=== PATIENT | male | born 1945 | race Caucasian/White ===

== ENCOUNTER 2019-06-19 08:34 | Inpatient (IN) | payer OTHER ==
[~2019-06-19] VITALS: Ht 172.7 cm; Wt 124.3 kg
[~2019-06-19 08:34] MED LIST: ACET325 PO; ALBU90OI INH; AMLO5 PO; ASPI81CH PO; Acidophilus La100 GM PO; DOCU100 PO; Flovent Diskus50 MCG INH; ISOMON20 PO; LATA.005SO BOTHEYES; LIDO5TP TOP; LORA1 PO; LORA10 PO; MECL12.5 PO; MONT10T PO; Omeprazole20 M1 PO; TRAM50 PO; TRAZ100 PO; [UNRECOGNIZED DRUG - OTHER] TOP
[2019-06-19 10:22] LABS: BASOPHILS ABSOLUTE AUTO 0.05 K/mm3 (0.00-0.23); BASOPHILS PERCENT AUTO 1 % (0-2); EOSINOPHILS ABSOLUTE AUTO 0.22 K/mm3 (0.00-0.68); EOSINOPHILS PERCENT AUTO 2 % (0-6); Hematocrit 46.1 % (37.0-53.0); Hemoglobin 15.6 g/dL (13.5-17.5); IMMATURE GRAN ABSOLUTE AUTO 0.03 K/mm3 (0.00-0.10); IMMATURE GRAN PERCENT AUTO 0 % (0-1); LYMPHOCYTES ABSOLUTE AUTO 1.75 K/mm3 (0.84-5.20); LYMPHOCYTES PERCENT AUTO 19 % (21-46); MONOCYTES ABSOLUTE AUTO 0.75 K/mm3 (0.16-1.47); MONOCYTES PERCENT AUTO 8 % (4-13); Mean Corpuscular HGB 30.5 pg (26.0-34.0); Mean Corpuscular HGB Conc 33.8 g/dL (31.5-36.5); Mean Corpuscular Volume 90 fL (80-100); Mean Platelet Volume 9.3 fL (9.1-12.4); NEUTROPHILS ABSOLUTE AUTO 6.54 K/mm3 (1.96-9.15); NEUTROPHILS PERCENT AUTO 70 % (41-73); Platelet Count 232 K/mm3 (150-400); Red Blood Cell Count 5.11 M/mm3 (4.30-5.90); White Blood Cell Count 9.34 K/mm3 (4.00-11.30)
[2019-06-19 10:27] LABS: Alanine Aminotransfer (ALT/SGP 41 U/L (12-78); Albumin, Blood 3.5 g/dL (3.4-5.0); Albumin/Globulin Ratio 0.7 (0.8-1.8); Alk Phos 117 U/L (50-136); Anion Gap 8 mmol/L (6-16); Aspartate Aminotrans (AST/SGOT 45 U/L (12-37); Bilirubin, Total 0.5 mg/dL (0.1-1.0); Blood Urea Nitrogen 14 mg/dL (8-24); Bun/Creatinine Ratio 16.7 (12.0-20.0); CO2, Blood 24 mmol/L (21-32); Chloride, Blood 105 mmol/L (98-108); Creatinine, Blood 0.84 mg/dL (0.60-1.20); Globulin, Blood 4.7 g/dL (2.2-4.0); Glomerular Filtration Rate >60 (60-); Glucose, Blood 114 mg/dL (70-99); Potassium, Blood 4.7 mmol/L (3.5-5.5); Sodium, Blood 137 mmol/L (136-145); Total Protein, Blood 8.2 g/dL (6.4-8.2)
[2019-06-19] MEDS ORDERED: BUDE6HFA INH (18:18)
[2019-06-19] MEDS ORDERED: CELE100 PO (18:19)
[2019-06-19] MEDS ORDERED: CLOB.05TO TOP (18:21)
[2019-06-19] MEDS ORDERED: DORZOLAMIDE 2%10 ML TOP (18:22)
[2019-06-19] MEDS ORDERED: SERT100 PO (18:25)
--- NOTE | 2019-06-19 18:37 | NUR ---
SHIFT SUMMARY ED ADMIT THIS AFTERNOON. PATIENT ORIENTED TO ROOM. PATIENT HAVING EPIGATRIC PAIN. PATIENT REPORTS PAIN MEDS GIVEN IN ED DID NOT HELP NOR DID THE GI COCKTAIL. PATIENT MEDICATED X1 FOR VOMITING. DENIES SHORTNESS OF BREATH. CALL LIGHT IN REACH.
[2019-06-20 01:09] LABS: BASOPHILS ABSOLUTE AUTO 0.05 K/mm3 (0.00-0.23); BASOPHILS PERCENT AUTO 1 % (0-2); EOSINOPHILS ABSOLUTE AUTO 0.12 K/mm3 (0.00-0.68); EOSINOPHILS PERCENT AUTO 1 % (0-6); Hematocrit 41.2 % (37.0-53.0); Hemoglobin 13.5 g/dL (13.5-17.5); IMMATURE GRAN ABSOLUTE AUTO 0.04 K/mm3 (0.00-0.10); IMMATURE GRAN PERCENT AUTO 0 % (0-1); LYMPHOCYTES ABSOLUTE AUTO 1.61 K/mm3 (0.84-5.20); LYMPHOCYTES PERCENT AUTO 16 % (21-46); MONOCYTES ABSOLUTE AUTO 0.88 K/mm3 (0.16-1.47); MONOCYTES PERCENT AUTO 9 % (4-13); Mean Corpuscular HGB 29.9 pg (26.0-34.0); Mean Corpuscular HGB Conc 32.8 g/dL (31.5-36.5); Mean Corpuscular Volume 91 fL (80-100); Mean Platelet Volume 9.2 fL (9.1-12.4); NEUTROPHILS ABSOLUTE AUTO 7.16 K/mm3 (1.96-9.15); NEUTROPHILS PERCENT AUTO 73 % (41-73); Platelet Count 179 K/mm3 (150-400); RDW Coefficient Variation 15.1 % (11.7-14.2); RDW Standard Deviation 50.4 fL (35.1-46.3); Red Blood Cell Count 4.52 M/mm3 (4.30-5.90); White Blood Cell Count 9.86 K/mm3 (4.00-11.30)
[2019-06-20 01:28] LABS: Alanine Aminotransfer (ALT/SGP 35 U/L (12-78); Albumin, Blood 2.9 g/dL (3.4-5.0); Albumin/Globulin Ratio 0.7 (0.8-1.8); Alk Phos 86 U/L (50-136); Anion Gap 6 mmol/L (6-16); Aspartate Aminotrans (AST/SGOT 28 U/L (12-37); Bilirubin, Total 0.6 mg/dL (0.1-1.0); Blood Urea Nitrogen 16 mg/dL (8-24); Bun/Creatinine Ratio 15.7 (12.0-20.0); CO2, Blood 25 mmol/L (21-32); Calcium, Blood 8.1 mg/dL (8.5-10.1); Chloride, Blood 107 mmol/L (98-108); Creatinine, Blood 1.02 mg/dL (0.60-1.20); Globulin, Blood 4.1 g/dL (2.2-4.0); Glomerular Filtration Rate >60 (60-); Glucose, Blood 117 mg/dL (70-99); Potassium, Blood 4.3 mmol/L (3.5-5.5); Sodium, Blood 138 mmol/L (136-145)
--- NOTE | 2019-06-20 06:35 | NUR ---
SHIFT SUMMARY PT IS A 74 Y/O MALE, ADMITTED FOR EPIGASTRIC CHEST PAIN. HE IS A&O X 3, THOUGH FORGETFUL AT TIMES. HE HAS BEEN VERY WEAK DURING THE NIGHT, OFTEN FALLING BACKWARDS INTO THE BED WHEN HE TRIES TO SIT UP ON THE SIDE OF THE BED. HE DID REPORT CHEST PAIN THROUGH THE NIGHT, AT AN 8-9/10 AT HS, BUT CAME DOWN THE A 4-5/10 IN THE AM. THE HOSPITALIST, NICOL HERNANDEZ, WAS CONSULTED FOR PAIN MEDS. HOWEVER, PER REPORT, NONE OF THE PREVIOUS PAIN MEDS TRIED HAD WORKED FOR THE PT'S PAIN. NITRO WAS ORDERED, BUT PT DECLINED. NO COMPLAINTS OF NAUSEA OR SOB. VITAL SIGNS STABLE. TELE MONITOR SHOWED NSR C PACS IN THE 90S. NO ACUTE CHANGES IN PT CONDITION NOTED. PT SLEPT WELL OFF AND ON DURING THE NIGHT. WILL CONTINUE TO MONITOR AND TREAT PER EMAR UNTIL HAND OFF TO DAY SHIFT RN.
--- NOTE | 2019-06-20 11:23 | NUR ---
ECHOCARDIOGRAM COMPLETED
--- NOTE | 2019-06-20 17:34 | NUR ---
SHIFT SUMMARY PATIENT MEDICATED X 1 FOR NAUSEA AND X1 FOR ANXIETY. PATIENT HAS CONTINUED TO HAVE EPIGASTRIC PAIN DURING THIS SHIFT. CASEY HAS HAD EPISODES OF NAUSEA AND DRYHEAVING WHEN HE ATTEMPTS TO EAT. PATIENT INTERMITTENTLY CONFUSED. BED ALARM ON, AT BEDSIDE MOST OF SHIFT. PATIENT UP TO USE URINAL AT BEDSIDE WITH ASSISTANCE. PATIENT VERY UNSTEADY ON HIS FEET. CALL LIGHT IN REACH.
--- NOTE | 2019-06-21 06:34 | NUR ---
SHIFT SUMMARY PT IS A 74 Y/O MALE, ORIGINALLY ADMITTED FOR EPIGASTRIC CHEST PAIN. HE IS A&O X 2, INCREASINGLY CONFUSED AT TIMES. PT DOES HAVE INCREASED WEAKNESS, WITH SOME DIFFICULTY SITTING UP ON THE SIDE OF THE BED. HE IS A 1-2PA UP TO THE [facility] [place]. PT IS STILL REPORTING PAIN, THOUGH DECREASED FROM ADMISSION, BETWEEN A 4-5/10. RUQ TENDERNESS NOTED. VITAL SIGNS STABLE. TELE SHOWED NSR WITH A FDB AT 58. NO COMPLAINTS OF NAUSEA OR SOB. NO ACUTE CHANGES IN PT CONDITION NOTED. WILL CONTINUE TO MONITOR AND TREAT PER EMAR UNTIL HAND OFF TO DAY SHIFT RN.
[2019-06-21 08:40] LABS: BASOPHILS ABSOLUTE AUTO 0.05 K/mm3 (0.00-0.23); BASOPHILS PERCENT AUTO 0 % (0-2); EOSINOPHILS ABSOLUTE AUTO 0.02 K/mm3 (0.00-0.68); EOSINOPHILS PERCENT AUTO 0 % (0-6); Hematocrit 41.6 % (37.0-53.0); Hemoglobin 14.1 g/dL (13.5-17.5); IMMATURE GRAN ABSOLUTE AUTO 0.07 K/mm3 (0.00-0.10); IMMATURE GRAN PERCENT AUTO 1 % (0-1); LYMPHOCYTES ABSOLUTE AUTO 1.67 K/mm3 (0.84-5.20); LYMPHOCYTES PERCENT AUTO 14 % (21-46); MONOCYTES ABSOLUTE AUTO 0.88 K/mm3 (0.16-1.47); MONOCYTES PERCENT AUTO 7 % (4-13); Mean Corpuscular HGB 30.7 pg (26.0-34.0); Mean Corpuscular HGB Conc 33.9 g/dL (31.5-36.5); Mean Corpuscular Volume 90 fL (80-100); NEUTROPHILS ABSOLUTE AUTO 9.16 K/mm3 (1.96-9.15); NEUTROPHILS PERCENT AUTO 77 % (41-73); Platelet Count 176 K/mm3 (150-400); RDW Coefficient Variation 14.6 % (11.7-14.2); RDW Standard Deviation 48.3 fL (35.1-46.3); White Blood Cell Count 11.85 K/mm3 (4.00-11.30)
[2019-06-21 09:01] LABS: Alanine Aminotransfer (ALT/SGP 35 U/L (12-78); Albumin, Blood 2.8 g/dL (3.4-5.0); Albumin/Globulin Ratio 0.6 (0.8-1.8); Alk Phos 85 U/L (50-136); Anion Gap 7 mmol/L (6-16); Aspartate Aminotrans (AST/SGOT 35 U/L (12-37); Bilirubin, Total 1.1 mg/dL (0.1-1.0); Blood Urea Nitrogen 16 mg/dL (8-24); Bun/Creatinine Ratio 17.6 (12.0-20.0); CO2, Blood 24 mmol/L (21-32); Calcium, Blood 8.5 mg/dL (8.5-10.1); Chloride, Blood 107 mmol/L (98-108); Creatinine, Blood 0.91 mg/dL (0.60-1.20); Globulin, Blood 4.7 g/dL (2.2-4.0); Glomerular Filtration Rate >60 (60-); Glucose, Blood 111 mg/dL (70-99); Sodium, Blood 138 mmol/L (136-145); Total Protein, Blood 7.5 g/dL (6.4-8.2)
--- NOTE | 2019-06-21 14:35 | NUR ---
History, Chart, Medications and Allergies reviewed before start of procedure. Lungs clear T/O to Auscultation. Patient confirms NPO status and agrees with scheduled surgery. Pre-Op teaching done. Pt verbalizes understanding.
--- NOTE | 2019-06-21 19:43 | NUR ---
SHIFT SUMMARY- PT WENT TO DAY SURGERY AT 1400 AND HAS NOT YET RETURNED AT SHIFT CHANGE, HOWEVER HIS SPOUSE CAME UP AND STATED THE PROCEDURE WAS FINALLY COMPLETED, PER THE PT THE GALLBLADDER WAS NOT LOOKING GOOD AT ALL. PASSED ON IN REPORT THAT THE PT HAS NOT YET RETURNED AND PACU WILL POSSIBLY BE CALLING SOON FOR REPORT. NIGHT DUONG HAIRSTON AWARE. PT HAS PRN FENTANYL ORDERED FOR PAIN. THAT WAS GIVEN TWICE PRIOR TO SURGERY. PT WILL BE ON TELE AGAIN WHEN HE ARRIVES FROM PACU. PT WAS RUNNING NSR IN THE 80'S WITH A FIRST DEGREE BLOCK THIS MORNING.
--- NOTE | 2019-06-22 04:38 | NUR ---
SHIFT SUMMARY ADMITTED FOR CHEST PAIN (EPIGASTRIC PAIN). FULL CODE. USES CPAP @ PM. LAPCHOLE PERFORMED TODAY. ZAYRA DRAIN IN PLACE. PAIN MEDICATION IN EMAR IS AVAILABLE. POST OP VS ARE IN PROGRESS. 2 LPM VIA NC. IV ANTIBIOTICS ARE SCHEDULED. CAN BE FORGETFUL. MONITORING WBC LABS. HX: ANXIETY, COPD, ASTHMA, HTN, ANGINA.
[2019-06-22 05:04] LABS: BASOPHILS ABSOLUTE AUTO 0.02 K/mm3 (0.00-0.23); BASOPHILS PERCENT AUTO 0 % (0-2); EOSINOPHILS PERCENT AUTO 0 % (0-6); Hemoglobin 12.5 g/dL (13.5-17.5); IMMATURE GRAN ABSOLUTE AUTO 0.06 K/mm3 (0.00-0.10); IMMATURE GRAN PERCENT AUTO 1 % (0-1); LYMPHOCYTES ABSOLUTE AUTO 1.05 K/mm3 (0.84-5.20); LYMPHOCYTES PERCENT AUTO 9 % (21-46); MONOCYTES ABSOLUTE AUTO 0.85 K/mm3 (0.16-1.47); MONOCYTES PERCENT AUTO 7 % (4-13); Mean Corpuscular HGB 30.5 pg (26.0-34.0); Mean Corpuscular HGB Conc 32.9 g/dL (31.5-36.5); Mean Platelet Volume 9.5 fL (9.1-12.4); NEUTROPHILS ABSOLUTE AUTO 9.73 K/mm3 (1.96-9.15); NEUTROPHILS PERCENT AUTO 83 % (41-73); Platelet Count 180 K/mm3 (150-400); RDW Coefficient Variation 14.9 % (11.7-14.2); RDW Standard Deviation 50.4 fL (35.1-46.3); White Blood Cell Count 11.71 K/mm3 (4.00-11.30)
[2019-06-22 05:18] LABS: Mean Corpuscular Volume 93 fL (80-100)
[2019-06-22 05:27] LABS: Alanine Aminotransfer (ALT/SGP 36 U/L (12-78); Albumin, Blood 2.3 g/dL (3.4-5.0); Albumin/Globulin Ratio 0.5 (0.8-1.8); Alk Phos 76 U/L (50-136); Anion Gap 7 mmol/L (6-16); Aspartate Aminotrans (AST/SGOT 46 U/L (12-37); Blood Urea Nitrogen 17 mg/dL (8-24); CO2, Blood 22 mmol/L (21-32); Calcium, Blood 8.1 mg/dL (8.5-10.1); Chloride, Blood 108 mmol/L (98-108); Creatinine, Blood 0.94 mg/dL (0.60-1.20); Globulin, Blood 4.5 g/dL (2.2-4.0); Glomerular Filtration Rate >60 (60-); Glucose, Blood 149 mg/dL (70-99); Potassium, Blood 4.2 mmol/L (3.5-5.5); Sodium, Blood 137 mmol/L (136-145); Total Protein, Blood 6.8 g/dL (6.4-8.2)
--- NOTE | 2019-06-22 09:05 | NUR ---
06/22/19 0905 Connie Georges VERIFICATIONS: EDIT CHART.
--- NOTE | 2019-06-22 13:08 | NUR ---
Patient gave Student RN permission to access medical records for care. Permission given [id number]- 06/23/19
--- NOTE | 2019-06-22 19:45 | NUR ---
SUMMARY- PT ALRET AND ORIENTED. PT WORKED WITH PT AND OT THIS AM BEFORE PAIN MEDS AND WAS A 10/10- MEDICATED WITH VICODIN AT 0915- AN HOUR LATER A 5/10 MEDICATED WITH FENTANYL WITH RELEIF, PT WAS SLEEPY AFTER THIS DOSE AND WENT BACK TO BED AFTER SITTING UP IN THE CHAIR FOR AN HOUR. PT TOLERATED A CARDIAC DIET FOR LUNCH. 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 MEDICATED AGAIN AT 1515 FOR ABD PAIN WITH ADEQUATE RELEIF. TOLERATED CARDIAC DINNER. GOT UP TO THE BATHROOM TODAY AND WALKED IN PLACE FOR PT. MAKING PROGRESS, WILL REPORT TO ASPEN WATTERS.
--- NOTE | 2019-06-23 04:54 | NUR ---
SHIFT SUMMARY ADMITTED FOR CHEST PAIN (ABDOMINAL PAIN). FULL CODE. FOUND TO HAVE INFECTED GALLBLADDER. LAPCHOLE PERFORMED 2 DAYS AGO. ZAYRA DRAIN IN PLACE, NOTED LESS DRAINAGE THIS SHIFT AND NOT SANGUINOUS IN APPEARANCE. PT REQUESTED ORAL PAIN MEDS ONLY ONE TIME THIS SHIFT. IV ANTIBIOTICS ARE SCHEDULED. PHYSICAL THERAPY AND OT ARE WORKING WITH THIS PT. OT RECOMMENDS DC W/HH. PT STATES HE FEELS MUCH IMPROVED THIS SHIFT. HX: CHOLECYSTITIS, HTN, COPD, ANXIETY. 2 LPM O2 VIA NC PRN. CPAP @ PM IS BASELINE
[2019-06-23 05:38] LABS: BASOPHILS ABSOLUTE AUTO 0.03 K/mm3 (0.00-0.23); BASOPHILS PERCENT AUTO 0 % (0-2); EOSINOPHILS ABSOLUTE AUTO 0.06 K/mm3 (0.00-0.68); EOSINOPHILS PERCENT AUTO 1 % (0-6); Hematocrit 38.4 % (37.0-53.0); Hemoglobin 12.7 g/dL (13.5-17.5); IMMATURE GRAN ABSOLUTE AUTO 0.03 K/mm3 (0.00-0.10); IMMATURE GRAN PERCENT AUTO 0 % (0-1); LYMPHOCYTES ABSOLUTE AUTO 1.79 K/mm3 (0.84-5.20); LYMPHOCYTES PERCENT AUTO 21 % (21-46); MONOCYTES ABSOLUTE AUTO 0.55 K/mm3 (0.16-1.47); MONOCYTES PERCENT AUTO 7 % (4-13); Mean Corpuscular HGB 30.4 pg (26.0-34.0); Mean Corpuscular HGB Conc 33.1 g/dL (31.5-36.5); Mean Corpuscular Volume 92 fL (80-100); Mean Platelet Volume 9.3 fL (9.1-12.4); NEUTROPHILS ABSOLUTE AUTO 5.98 K/mm3 (1.96-9.15); NEUTROPHILS PERCENT AUTO 71 % (41-73); Platelet Count 214 K/mm3 (150-400); RDW Coefficient Variation 14.9 % (11.7-14.2); RDW Standard Deviation 50.4 fL (35.1-46.3); Red Blood Cell Count 4.18 M/mm3 (4.30-5.90); White Blood Cell Count 8.44 K/mm3 (4.00-11.30)
[2019-06-23 06:06] LABS: Alanine Aminotransfer (ALT/SGP 34 U/L (12-78); Albumin, Blood 2.3 g/dL (3.4-5.0); Albumin/Globulin Ratio 0.5 (0.8-1.8); Alk Phos 78 U/L (50-136); Anion Gap 6 mmol/L (6-16); Aspartate Aminotrans (AST/SGOT 35 U/L (12-37); Bilirubin, Total 0.7 mg/dL (0.1-1.0); Blood Urea Nitrogen 16 mg/dL (8-24); Bun/Creatinine Ratio 18.3 (12.0-20.0); CO2, Blood 26 mmol/L (21-32); Calcium, Blood 8.3 mg/dL (8.5-10.1); Chloride, Blood 111 mmol/L (98-108); Creatinine, Blood 0.87 mg/dL (0.60-1.20); Globulin, Blood 4.5 g/dL (2.2-4.0); Glomerular Filtration Rate >60 (60-); Glucose, Blood 94 mg/dL (70-99); Magnesium, Blood 2.2 mg/dL (1.6-2.4); Sodium, Blood 143 mmol/L (136-145); Total Protein, Blood 6.8 g/dL (6.4-8.2)
[2019-06-23] MEDS ORDERED: LACT PO (10:10)
[2019-06-23] MEDS ORDERED: ATOR40TA PO (10:11)
[2019-06-23] MEDS ORDERED: LEVO750 PO (10:13)
[2019-06-23] MEDS ORDERED: LIDO700A20 TOP (10:18)
--- NOTE | 2019-06-23 11:11 | NUR ---
DISCHARGE DR ALEXANDER IN THIS AM TO ASSESS LAP CHOLEY SURG SITES & REMOVE ZAYRA DRAIN, STERI STRIPS TO 3 SITES, 2X2 GAUZE TO ZAYRA SITE. NO S/S INFECTION, NO DRAINAGE. DR INFORM PT HE MAY REMOVE GUARIANA DRSG WHEN HE SHOWERS @ HOME & REPLACE w BANDAID. PT STATE ABD PAIN CONTINUES, DR PROVIDE HARD COPY PAIN SCRIPT. PRN NORCO GIVEN FOR RELIEF/CONTROL @ THIS TIME. SCRIPTS FAXED TO [facility]/REQUEST. PHYTHER IN TO ASSESS & TX PRIOR TO D/C, STATE READY TO GO HOME. HERE FOR TRANSPORTATION HOME, D/C INSTRUCT REVIEWED w PT & . W/C ESCORT FROM HOSP PROVIDED. THEY PLEASANT/APPRECIATIVE.
== END 2019-06-23 12:01 | disposition home or self-care (01) | DRG 418 ==
LOC: ER 08:34 → MEDS 08:35 → ENPENDDIS 06-23 09:23 → MEDS 06-23 12:01
PROVIDERS: Emergency Medicine; Nurse Practitioner Acute Care; Surgery; ADMIT Internal Medicine
PROC: BF03YZZ Plain Radiography of Gallbladder and Bile Ducts using Other Contrast (ICD-10-PCS; 2019-06-21)
PROC: 0FT44ZZ Resection of Gallbladder, Percutaneous Endoscopic Approach (ICD-10-PCS; principal; 2019-06-21 15:00)
DX: K80.00 Calculus of gallbladder with acute cholecystitis without obstruction (principal); Z68.41 Body mass index [BMI] 40.0-44.9, adult; K82.A1 Gangrene of gallbladder in cholecystitis; E66.01 Morbid (severe) obesity due to excess calories; J44.9 Chronic obstructive pulmonary disease, unspecified; I10 Essential (primary) hypertension; F41.1 Generalized anxiety disorder; K21.9 Gastro-esophageal reflux disease without esophagitis; L40.9 Psoriasis, unspecified; G47.33 Obstructive sleep apnea (adult) (pediatric); Z79.82 Long term (current) use of aspirin
CPT/HCPCS: 36415; 71046; 74300; 76705; 80053; 83690; 83735; 84484; 85025; 88304; 93005; 93010; 93306; 94640; 94760; 96361; 96365; 96372; 96374; 96375; 96376; 97110; 97161; 97166; 97530; 99285-25; A9270; A9270-GY; C1729; C9113; G0378; J0694; J1100; J1170; J1650; J1885; J2270; J2405; J2704; J3010; J7030; J7120

== ENCOUNTER 2020-09-18 14:03 | Emergency (ER) | payer OTHER ==
[~2020-09-18] VITALS: Ht 172.7 cm; Wt 115.7 kg
[~2020-09-18 14:03] MED LIST changes: +ATOR40TA PO; +BUDE6HFA INH; +CELE100 PO; +CLOB.05TO TOP; +DORZOLAMIDE 2%10 ML TOP; +LACT PO; +LEVO750 PO; +LIDO700A20 TOP; +SERT100 PO
[2020-09-18 14:54] LABS: BASOPHILS ABSOLUTE AUTO 0.04 K/mm3 (0.00-0.23); BASOPHILS PERCENT AUTO 0 % (0-2); EOSINOPHILS ABSOLUTE AUTO 0.18 K/mm3 (0.00-0.68); EOSINOPHILS PERCENT AUTO 2 % (0-6); Hematocrit 45.4 % (37.0-53.0); Hemoglobin 15.4 g/dL (13.5-17.5); IMMATURE GRAN ABSOLUTE AUTO 0.03 K/mm3 (0.00-0.10); IMMATURE GRAN PERCENT AUTO 0 % (0-1); LYMPHOCYTES ABSOLUTE AUTO 1.24 K/mm3 (0.84-5.20); LYMPHOCYTES PERCENT AUTO 10 % (21-46); MONOCYTES ABSOLUTE AUTO 0.84 K/mm3 (0.16-1.47); MONOCYTES PERCENT AUTO 7 % (4-13); Mean Corpuscular HGB 31.4 pg (26.0-34.0); Mean Corpuscular HGB Conc 33.9 g/dL (31.5-36.5); Mean Corpuscular Volume 93 fL (80-100); Mean Platelet Volume 9.3 fL (9.1-12.4); NEUTROPHILS PERCENT AUTO 81 % (41-73); Platelet Count 197 K/mm3 (150-400); RDW Coefficient Variation 14.3 % (11.7-14.2); White Blood Cell Count 12.33 K/mm3 (4.00-11.30)
[2020-09-18 15:17] LABS: Alanine Aminotransfer (ALT/SGP 48 U/L (12-78); Albumin, Blood 3.5 g/dL (3.4-5.0); Albumin/Globulin Ratio 0.8 (0.8-1.8); Alk Phos 107 U/L (50-136); Anion Gap 8 mmol/L (6-16); Aspartate Aminotrans (AST/SGOT 42 U/L (12-37); Bilirubin, Total 0.5 mg/dL (0.1-1.0); Blood Urea Nitrogen 14 mg/dL (8-24); Bun/Creatinine Ratio 12.6 (12.0-20.0); CO2, Blood 21 mmol/L (21-32); Chloride, Blood 110 mmol/L (98-108); Creatinine, Blood 1.11 mg/dL (0.60-1.20); Globulin, Blood 4.4 g/dL (2.2-4.0); Glomerular Filtration Rate >60 (60-); Glucose, Blood 109 mg/dL (70-99); Sodium, Blood 139 mmol/L (136-145); Total Protein, Blood 7.9 g/dL (6.4-8.2)
[2020-09-18 19:27] LABS: Source, Urine Clean Catch
[2020-09-18 19:32] LABS: Appearance, Urine Clear (Clear); Bilirubin, Urine Neg (Neg); Blood, Urine Neg (Neg); Color, Urine Amber (P-Yellow); Glucose Qualitative, Urine Neg (Neg); Ketones, Urine 1+ (Neg); Leukocyte Esterase, Urine 1+ (Neg); Nitrite, Urine Neg (Neg); Protein, Urine 1+ (Neg); Urobilinogen, Urine NORM (Normal)
[2020-09-18 19:55] LABS: Bacteria Mod /hpf; Mucus Light (0-Heavy); Red Blood Cells, Urine 0-2 /hpf (0-2); Squamous Epithelial Cells Not Seen /hpf (Few); White Blood Cells, Urine 0-2 /hpf (0-5)
[2020-09-18 20:21] LABS: SARS-Cov-2 (COVID-19) PCR, MMC NEGATIVE (NEGATIVE)
== END 2020-09-18 20:37 | disposition home or self-care (01) ==
LOC: ER 14:03
PROVIDERS: Emergency Medicine
DX: R50.9 Fever, unspecified (principal); R11.2 Nausea with vomiting, unspecified; R19.7 Diarrhea, unspecified; Z91.09 Other allergy status, other than to drugs and biological substances; Z20.822 Contact with and (suspected) exposure to COVID-19
CPT/HCPCS: 36415; 71045; 80053; 81001; 85025; 87086; 93005; 93010; 96361; 96374; 99285-25; J1885; J7030; U0004

== ENCOUNTER 2021-06-24 08:33 | Emergency (ER) | payer OTHER ==
[~2021-06-24] VITALS: Ht 172.7 cm; Wt 120.2 kg
[2021-06-24] MEDS ORDERED: ACET500 PO (08:53)
[2021-06-24] MEDS ORDERED: ZYRTEC10 M2 PO (08:54)
[2021-06-24] MEDS ORDERED: CELEBREX200 MG PO (08:54)
[2021-06-24] MEDS ORDERED: DORZOPSO BOTHEYES (08:55)
[2021-06-24] MEDS ORDERED: Flonase 0.05% N16 GM (08:56)
[2021-06-24] MEDS ORDERED: LATA.005SO BOTHEYES (08:57)
[2021-06-24] MEDS ORDERED: Hydroxyzine HCl25 MG PO (08:57)
[2021-06-24] MEDS ORDERED: OMEP20ER PO (08:58)
[2021-06-24] MEDS ORDERED: SERT100 PO (08:58)
[2021-06-24] MEDS ORDERED: LC-545 GM TP (08:58)
[2021-06-24] MEDS ORDERED: MONT10T PO (08:58)
[2021-06-24 09:18] LABS: BASOPHILS ABSOLUTE AUTO 0.06 K/mm3 (0.00-0.23); BASOPHILS PERCENT AUTO 1 % (0-2); EOSINOPHILS ABSOLUTE AUTO 0.31 K/mm3 (0.00-0.68); EOSINOPHILS PERCENT AUTO 4 % (0-6); Hematocrit 45.2 % (37.0-53.0); Hemoglobin 15.5 g/dL (13.5-17.5); IMMATURE GRAN ABSOLUTE AUTO 0.01 K/mm3 (0.00-0.10); IMMATURE GRAN PERCENT AUTO 0 % (0-1); LYMPHOCYTES PERCENT AUTO 28 % (21-46); MONOCYTES ABSOLUTE AUTO 0.55 K/mm3 (0.16-1.47); MONOCYTES PERCENT AUTO 7 % (4-13); Mean Corpuscular HGB 31.3 pg (26.0-34.0); Mean Corpuscular HGB Conc 34.3 g/dL (31.5-36.5); Mean Corpuscular Volume 91 fL (80-100); Mean Platelet Volume 9.5 fL (9.1-12.4); NEUTROPHILS ABSOLUTE AUTO 4.98 K/mm3 (1.96-9.15); NEUTROPHILS PERCENT AUTO 61 % (41-73); Platelet Count 237 K/mm3 (150-400); RDW Coefficient Variation 14.1 % (11.7-14.2); RDW Standard Deviation 47.9 fL (35.1-46.3); Red Blood Cell Count 4.95 M/mm3 (4.30-5.90); White Blood Cell Count 8.21 K/mm3 (4.00-11.30)
[2021-06-24 09:33] LABS: Alanine Aminotransfer (ALT/SGP 52 U/L (12-78); Albumin, Blood 3.2 g/dL (3.4-5.0); Albumin/Globulin Ratio 0.7 (0.8-1.8); Alk Phos 124 U/L (50-136); Anion Gap 6 mmol/L (6-16); Aspartate Aminotrans (AST/SGOT 78 U/L (12-37); Bilirubin, Total 0.6 mg/dL (0.1-1.0); Blood Urea Nitrogen 17 mg/dL (8-24); Bun/Creatinine Ratio 21.9 (12.0-20.0); CO2, Blood 23 mmol/L (21-32); Chloride, Blood 109 mmol/L (98-108); Creatinine, Blood 0.78 mg/dL (0.60-1.20); Globulin, Blood 4.9 g/dL (2.2-4.0); Glomerular Filtration Rate >60 (60-); Glucose, Blood 127 mg/dL (70-99); Potassium, Blood 5.4 mmol/L (3.5-5.5); Sodium, Blood 138 mmol/L (136-145); Total Protein, Blood 8.1 g/dL (6.4-8.2)
== END 2021-06-24 10:43 | disposition home or self-care (01) ==
LOC: ER 08:33
PROVIDERS: Emergency Medicine
DX: R07.89 Other chest pain (principal); K21.9 Gastro-esophageal reflux disease without esophagitis; I10 Essential (primary) hypertension; Z91.048 Other nonmedicinal substance allergy status; Z88.8 Allergy status to other drugs, medicaments and biological substances
CPT/HCPCS: 36415; 71045; 80053; 84484; 85025; 93005; 93010; 96374; 96375; 99285-25; J2060; J3010

== ENCOUNTER 2022-07-30 00:30 | Emergency (ER) | payer OTHER ==
[~2022-07-30] VITALS: Ht 172.7 cm; Wt 108.9 kg
[~2022-07-30 00:30] MED LIST changes: +ACET500 PO; +CELEBREX200 MG PO; +DORZOPSO BOTHEYES; +Flonase 0.05% N16 GM; +Hydroxyzine HCl25 MG PO; +LC-545 GM TP; +OMEP20ER PO; +ZYRTEC10 M2 PO
[2022-07-30 00:57] LABS: BASOPHILS ABSOLUTE AUTO 0.06 K/mm3 (0.00-0.23); BASOPHILS PERCENT AUTO 1 % (0-2); EOSINOPHILS ABSOLUTE AUTO 0.22 K/mm3 (0.00-0.68); EOSINOPHILS PERCENT AUTO 2 % (0-6); Hematocrit 41.3 % (37.0-53.0); Hemoglobin 13.6 g/dL (13.5-17.5); IMMATURE GRAN ABSOLUTE AUTO 0.02 K/mm3 (0.00-0.10); IMMATURE GRAN PERCENT AUTO 0 % (0-1); LYMPHOCYTES ABSOLUTE AUTO 3.12 K/mm3 (0.84-5.20); LYMPHOCYTES PERCENT AUTO 31 % (21-46); MONOCYTES ABSOLUTE AUTO 0.73 K/mm3 (0.16-1.47); MONOCYTES PERCENT AUTO 7 % (4-13); Mean Corpuscular HGB 30.2 pg (26.0-34.0); Mean Corpuscular HGB Conc 32.9 g/dL (31.5-36.5); Mean Corpuscular Volume 92 fL (80-100); Mean Platelet Volume 8.7 fL (9.1-12.4); NEUTROPHILS ABSOLUTE AUTO 5.85 K/mm3 (1.96-9.15); NEUTROPHILS PERCENT AUTO 59 % (41-73); Platelet Count 195 K/mm3 (150-400); RDW Coefficient Variation 14.5 % (11.7-14.2); RDW Standard Deviation 48.9 fL (35.1-46.3)
[2022-07-30 01:17] LABS: Albumin, Blood 2.9 g/dL (3.4-5.0); Albumin/Globulin Ratio 0.7 (0.8-1.8); Bilirubin, Total 0.3 mg/dL (0.1-1.0); Calcium, Blood 8.2 mg/dL (8.5-10.1); Creatinine, Blood 0.92 mg/dL (0.60-1.20); Globulin, Blood 4.3 g/dL (2.2-4.0); Potassium, Blood 3.6 mmol/L (3.5-5.5); Total Protein, Blood 7.2 g/dL (6.4-8.2)
== END 2022-07-30 04:53 | disposition home or self-care (01) ==
LOC: ER 00:30
PROVIDERS: Student in an Organized Health Care Education/Training Program
DX: R07.9 Chest pain, unspecified (principal); R06.02 Shortness of breath; J44.9 Chronic obstructive pulmonary disease, unspecified; K21.9 Gastro-esophageal reflux disease without esophagitis; I10 Essential (primary) hypertension; Z91.09 Other allergy status, other than to drugs and biological substances; Z88.8 Allergy status to other drugs, medicaments and biological substances; Z88.6 Allergy status to analgesic agent; Z79.899 Other long term (current) drug therapy
CPT/HCPCS: 71046; 71260; 80053; 83690; 84484; 85025; 85379; 93005; 93010; J3010; Q9967

== ENCOUNTER 2023-11-24 20:56 | Emergency (ER) | payer OTHER ==
[~2023-11-24] VITALS: Ht 172.7 cm; Wt 108.9 kg
[2023-11-24] MEDS ORDERED: NS 1,000 ML IV SCH (22:50)
[2023-11-24 23:20] LABS: Source, Urine Clean Catch
[2023-11-24 23:26] LABS: Bilirubin, Urine Neg (Neg); Blood, Urine Neg (Neg); Glucose Qualitative, Urine Neg (Neg); Ketones, Urine Neg (Neg); Leukocyte Esterase, Urine Neg (Neg); Nitrite, Urine Neg (Neg); Protein, Urine Neg (Neg); Urobilinogen, Urine NORM (Normal)
[2023-11-24 23:27] LABS: BASOPHILS ABSOLUTE AUTO 0.06 K/mm3 (0.00-0.23); BASOPHILS PERCENT AUTO 1 % (0-2); EOSINOPHILS ABSOLUTE AUTO 0.26 K/mm3 (0.00-0.68); EOSINOPHILS PERCENT AUTO 3 % (0-6); Hematocrit 43.4 % (37.0-53.0); Hemoglobin 15.1 g/dL (13.5-17.5); IMMATURE GRAN ABSOLUTE AUTO 0.04 K/mm3 (0.00-0.10); IMMATURE GRAN PERCENT AUTO 0 % (0-1); LYMPHOCYTES ABSOLUTE AUTO 2.98 K/mm3 (0.84-5.20); LYMPHOCYTES PERCENT AUTO 30 % (21-46); MONOCYTES ABSOLUTE AUTO 0.65 K/mm3 (0.16-1.47); MONOCYTES PERCENT AUTO 7 % (4-13); Mean Corpuscular HGB 31.9 pg (26.0-34.0); Mean Corpuscular HGB Conc 34.8 g/dL (31.5-36.5); Mean Corpuscular Volume 92 fL (80-100); Mean Platelet Volume 9.3 fL (9.1-12.4); NEUTROPHILS ABSOLUTE AUTO 5.98 K/mm3 (1.96-9.15); NEUTROPHILS PERCENT AUTO 60 % (41-73); Platelet Count 201 K/mm3 (150-400); RDW Coefficient Variation 14.5 % (11.7-14.2); RDW Standard Deviation 49.1 fL (35.1-46.3); Red Blood Cell Count 4.73 M/mm3 (4.30-5.90); White Blood Cell Count 9.97 K/mm3 (4.00-11.30)
[2023-11-24 23:29] LABS: Appearance, Urine Clear (Clear); Color, Urine Yellow (P-Yellow)
[2023-11-24 23:45] LABS: Albumin, Blood 2.8 g/dL (3.4-5.0); Albumin/Globulin Ratio 0.6 (0.8-1.8); Bilirubin, Total 0.4 mg/dL (0.1-1.0); Bun/Creatinine Ratio 18.5 (12.0-20.0); Calcium, Blood 8.8 mg/dL (8.5-10.1); Creatinine, Blood 1.08 mg/dL (0.60-1.20); Globulin, Blood 4.6 g/dL (2.2-4.0); Potassium, Blood 4.9 mmol/L (3.5-5.5); Total Protein, Blood 7.4 g/dL (6.4-8.2)
[2023-11-25] VITALS: BP 154/82
== END 2023-11-25 00:15 | disposition home or self-care (01) ==
LOC: ER 20:56
PROVIDERS: Student in an Organized Health Care Education/Training Program
DX: E86.0 Dehydration (principal); S51.811A Laceration without foreign body of right forearm, initial encounter; J44.9 Chronic obstructive pulmonary disease, unspecified; I10 Essential (primary) hypertension; K21.9 Gastro-esophageal reflux disease without esophagitis; W22.09XA Striking against other stationary object, initial encounter; Z91.09 Other allergy status, other than to drugs and biological substances; Z88.8 Allergy status to other drugs, medicaments and biological substances; Z88.6 Allergy status to analgesic agent; Z79.899 Other long term (current) drug therapy
CPT/HCPCS: 80053; 81003; 85025; 93005; 93010; 99284-25; J7030

== ENCOUNTER 2023-12-22 14:34 | Emergency (ER) | payer OTHER ==
[~2023-12-22] VITALS: Ht 172.7 cm; Wt 108.9 kg
[2023-12-22] MEDS ORDERED: Acetaminophen 500 MG Tab PO ONE (14:45)
[2023-12-22] MEDS ORDERED: NS 1,000 ML IV SCH (14:45)
[2023-12-22 14:58] LABS: BASOPHILS ABSOLUTE AUTO 0.08 K/mm3 (0.00-0.23); BASOPHILS PERCENT AUTO 1 % (0-2); EOSINOPHILS ABSOLUTE AUTO 0.21 K/mm3 (0.00-0.68); EOSINOPHILS PERCENT AUTO 2 % (0-6); Hemoglobin 15.3 g/dL (13.5-17.5); IMMATURE GRAN ABSOLUTE AUTO 0.03 K/mm3 (0.00-0.10); IMMATURE GRAN PERCENT AUTO 0 % (0-1); LYMPHOCYTES ABSOLUTE AUTO 2.21 K/mm3 (0.84-5.20); LYMPHOCYTES PERCENT AUTO 20 % (21-46); MONOCYTES PERCENT AUTO 8 % (4-13); Mean Corpuscular HGB 31.4 pg (26.0-34.0); Mean Corpuscular Volume 92 fL (80-100); Mean Platelet Volume 8.6 fL (9.1-12.4); NEUTROPHILS ABSOLUTE AUTO 7.73 K/mm3 (1.96-9.15); NEUTROPHILS PERCENT AUTO 69 % (41-73); Platelet Count 229 K/mm3 (150-400); RDW Coefficient Variation 13.8 % (11.7-14.2); RDW Standard Deviation 47.4 fL (35.1-46.3); Red Blood Cell Count 4.87 M/mm3 (4.30-5.90); White Blood Cell Count 11.16 K/mm3 (4.00-11.30)
[2023-12-22 15:36] LABS: Albumin, Blood 3.1 g/dL (3.4-5.0); Albumin/Globulin Ratio 0.6 (0.8-1.8); Bilirubin, Total 0.7 mg/dL (0.1-1.0); Bun/Creatinine Ratio 16.2 (12.0-20.0); Calcium, Blood 8.9 mg/dL (8.5-10.1); Creatinine, Blood 0.99 mg/dL (0.60-1.20); Globulin, Blood 5.3 g/dL (2.2-4.0); Potassium, Blood 4.4 mmol/L (3.5-5.5); Total Protein, Blood 8.4 g/dL (6.4-8.2)
[2023-12-22 15:42] LABS: Influenza A, PCR NEGATIVE (NEGATIVE); Influenza B, PCR NEGATIVE (NEGATIVE); Resp Syncytial Virus, PCR NEGATIVE (NEGATIVE); SARS-Cov-2 (COVID-19) PCR, MMC NEGATIVE (NEGATIVE)
[2023-12-22 15:56] VITALS: BP 122/66
[2023-12-22 16:19] LABS: Source, Urine Clean Catch
[2023-12-22 16:23] LABS: Appearance, Urine Clear (Clear); Bilirubin, Urine Neg (Neg); Blood, Urine Neg (Neg); Color, Urine Yellow (P-Yellow); Glucose Qualitative, Urine Neg (Neg); Ketones, Urine Neg (Neg); Leukocyte Esterase, Urine Neg (Neg); Nitrite, Urine Neg (Neg); Protein, Urine Neg (Neg); Specific Gravity, Urine 1.015 (1.003-1.022); Urobilinogen, Urine NORM (Normal)
== END 2023-12-22 16:59 | disposition home or self-care (01) ==
LOC: ER 14:34
PROVIDERS: Emergency Medicine
DX: R53.1 Weakness (principal); R42 Dizziness and giddiness; J44.9 Chronic obstructive pulmonary disease, unspecified; I10 Essential (primary) hypertension; K21.9 Gastro-esophageal reflux disease without esophagitis; Z91.09 Other allergy status, other than to drugs and biological substances; Z88.8 Allergy status to other drugs, medicaments and biological substances; Z88.6 Allergy status to analgesic agent; Z79.899 Other long term (current) drug therapy; Z11.52 Encounter for screening for COVID-19
CPT/HCPCS: 0241U; 70450; 71045; 80053; 81003; 84145; 85025; 99284-25; A9270; J7030

== ENCOUNTER 2024-02-07 10:33 | Emergency (ER) | payer OTHER ==
[~2024-02-07] VITALS: Ht 172.7 cm; Wt 108.9 kg
[2024-02-07] MEDS ORDERED: Ipratropium/Albuterol SulF 2.5-0.5MG/3 ML Amp INH ONE (11:00)
[2024-02-07 11:26] LABS: BASOPHILS ABSOLUTE AUTO 0.06 K/mm3 (0.00-0.23); BASOPHILS PERCENT AUTO 1 % (0-2); EOSINOPHILS ABSOLUTE AUTO 0.31 K/mm3 (0.00-0.68); EOSINOPHILS PERCENT AUTO 3 % (0-6); Hematocrit 46.4 % (37.0-53.0); IMMATURE GRAN ABSOLUTE AUTO 0.02 K/mm3 (0.00-0.10); IMMATURE GRAN PERCENT AUTO 0 % (0-1); LYMPHOCYTES ABSOLUTE AUTO 2.34 K/mm3 (0.84-5.20); LYMPHOCYTES PERCENT AUTO 24 % (21-46); MONOCYTES PERCENT AUTO 6 % (4-13); Mean Corpuscular HGB 31.7 pg (26.0-34.0); Mean Corpuscular HGB Conc 34.5 g/dL (31.5-36.5); Mean Corpuscular Volume 92 fL (80-100); Mean Platelet Volume 8.8 fL (9.1-12.4); NEUTROPHILS ABSOLUTE AUTO 6.51 K/mm3 (1.96-9.15); NEUTROPHILS PERCENT AUTO 66 % (41-73); Platelet Count 254 K/mm3 (150-400); RDW Coefficient Variation 14.4 % (11.7-14.2); RDW Standard Deviation 48.8 fL (35.1-46.3); Red Blood Cell Count 5.04 M/mm3 (4.30-5.90); White Blood Cell Count 9.84 K/mm3 (4.00-11.30)
[2024-02-07 11:45] LABS: Albumin/Globulin Ratio 0.5 (0.8-1.8); Bilirubin, Total 0.4 mg/dL (0.1-1.0); Bun/Creatinine Ratio 13.8 (12.0-20.0); Creatinine, Blood 0.94 mg/dL (0.60-1.20); Globulin, Blood 5.5 g/dL (2.2-4.0); Potassium, Blood 4.2 mmol/L (3.5-5.5); Total Protein, Blood 8.5 g/dL (6.4-8.2)
[2024-02-07] MEDS ORDERED: PredniSONE 20 MG Tab PO ONE (11:50)
[2024-02-07] MEDS ORDERED: Prednisone20 MG PO (11:51)
[2024-02-07 12:00] VITALS: BP 130/113
== END 2024-02-07 12:15 | disposition home or self-care (01) ==
LOC: ER 10:33
PROVIDERS: Emergency Medicine
DX: M79.10 Myalgia, unspecified site (principal); K21.9 Gastro-esophageal reflux disease without esophagitis; I10 Essential (primary) hypertension; F43.10 Post-traumatic stress disorder, unspecified; M19.90 Unspecified osteoarthritis, unspecified site; J44.89 Other specified chronic obstructive pulmonary disease; Z82.69 Family history of other diseases of the musculoskeletal system and connective tissue; Z79.51 Long term (current) use of inhaled steroids; Z79.899 Other long term (current) drug therapy; Z91.048 Other nonmedicinal substance allergy status; Z88.6 Allergy status to analgesic agent; Z88.8 Allergy status to other drugs, medicaments and biological substances
CPT/HCPCS: 71045; 80053; 82550; 85025; 94640; 94664; 99284-25; J7512

== ENCOUNTER 2024-06-13 10:55 | Emergency (ER) | payer OTHER ==
[~2024-06-13] VITALS: Ht 182.9 cm; Wt 127.0 kg
[~2024-06-13 10:55] MED LIST changes: +Prednisone20 MG PO
[2024-06-13 11:22] LABS: BASOPHILS ABSOLUTE AUTO 0.06 K/mm3 (0.00-0.23); BASOPHILS PERCENT AUTO 1 % (0-2); EOSINOPHILS ABSOLUTE AUTO 0.34 K/mm3 (0.00-0.68); EOSINOPHILS PERCENT AUTO 4 % (0-6); Hematocrit 42.7 % (37.0-53.0); Hemoglobin 14.7 g/dL (13.5-17.5); IMMATURE GRAN ABSOLUTE AUTO 0.03 K/mm3 (0.00-0.10); IMMATURE GRAN PERCENT AUTO 0 % (0-1); LYMPHOCYTES ABSOLUTE AUTO 4.28 K/mm3 (0.84-5.20); LYMPHOCYTES PERCENT AUTO 46 % (21-46); MONOCYTES ABSOLUTE AUTO 0.49 K/mm3 (0.16-1.47); MONOCYTES PERCENT AUTO 5 % (4-13); Mean Corpuscular HGB 31.7 pg (26.0-34.0); Mean Corpuscular HGB Conc 34.4 g/dL (31.5-36.5); Mean Corpuscular Volume 92 fL (80-100); Mean Platelet Volume 9.2 fL (9.1-12.4); NEUTROPHILS ABSOLUTE AUTO 4.16 K/mm3 (1.96-9.15); NEUTROPHILS PERCENT AUTO 45 % (41-73); Platelet Count 255 K/mm3 (150-400); RDW Coefficient Variation 14.8 % (11.7-14.2); Red Blood Cell Count 4.64 M/mm3 (4.30-5.90); White Blood Cell Count 9.36 K/mm3 (4.00-11.30)
[2024-06-13 11:39] LABS: Bun/Creatinine Ratio 18.4 (12.0-20.0); Calcium, Blood 8.5 mg/dL (8.5-10.1); Creatinine, Blood 0.76 mg/dL (0.60-1.20); Magnesium, Blood 1.8 mg/dL (1.6-2.4); Potassium, Blood 4.6 mmol/L (3.5-5.5)
[2024-06-13] MEDS ORDERED: ACET500 PO (13:50)
[2024-06-13 14:00] VITALS: BP 94/74
== END 2024-06-13 14:27 | disposition home or self-care (01) ==
LOC: ER 10:55
PROVIDERS: Emergency Medicine
DX: R07.89 Other chest pain (principal); K21.9 Gastro-esophageal reflux disease without esophagitis; J44.89 Other specified chronic obstructive pulmonary disease; I10 Essential (primary) hypertension; M19.90 Unspecified osteoarthritis, unspecified site; F43.10 Post-traumatic stress disorder, unspecified; Z87.891 Personal history of nicotine dependence; Z79.52 Long term (current) use of systemic steroids; Z79.51 Long term (current) use of inhaled steroids; Z79.899 Other long term (current) drug therapy; Z91.048 Other nonmedicinal substance allergy status; Z88.6 Allergy status to analgesic agent; Z88.8 Allergy status to other drugs, medicaments and biological substances
CPT/HCPCS: 71045; 80048; 83735; 84484; 85025; 93005; 93010; 99285-25

== ENCOUNTER 2025-02-05 07:34 | Emergency (ER) | payer OTHER ==
[~2025-02-05] VITALS: Ht 172.7 cm; Wt 108.9 kg
[2025-02-05 08:11] LABS: BASOPHILS ABSOLUTE AUTO 0.05 K/mm3 (0.00-0.23); BASOPHILS PERCENT AUTO 1 % (0-2); EOSINOPHILS ABSOLUTE AUTO 0.30 K/mm3 (0.00-0.68); EOSINOPHILS PERCENT AUTO 4 % (0-6); Hematocrit 43.7 % (37.0-53.0); Hemoglobin 15.1 g/dL (13.5-17.5); IMMATURE GRAN ABSOLUTE AUTO 0.03 K/mm3 (0.00-0.10); IMMATURE GRAN PERCENT AUTO 0 % (0-1); LYMPHOCYTES ABSOLUTE AUTO 2.78 K/mm3 (0.84-5.20); LYMPHOCYTES PERCENT AUTO 34 % (21-46); MONOCYTES ABSOLUTE AUTO 0.52 K/mm3 (0.16-1.47); MONOCYTES PERCENT AUTO 6 % (4-13); Mean Corpuscular HGB Conc 34.6 g/dL (31.5-36.5); Mean Corpuscular Volume 91 fL (80-100); NEUTROPHILS ABSOLUTE AUTO 4.44 K/mm3 (1.96-9.15); NEUTROPHILS PERCENT AUTO 55 % (41-73); NRBC ABSOLUTE 0.00 K/mm3 (0.00-0.02); NRBC Auto 0.0 /100 WBC (0.0-0.2); Platelet Count 280 K/mm3 (150-400); RDW Coefficient Variation 14.3 % (11.7-14.2); RDW Standard Deviation 48.6 fL (35.1-46.3)
[2025-02-05] MEDS ORDERED: Morphine Sulfate 4 MG/1 ML Injection IV ONE ×2 (08:30→10:10)
[2025-02-05 08:42] LABS: Alanine Aminotransfer (ALT/SGP 58.0 U/L (12-78); Albumin, Blood 2.9 g/dL (3.4-5.0); Albumin/Globulin Ratio 0.5 (0.8-1.8); Anion Gap 11.0 mmol/L (3-11); Aspartate Aminotrans (AST/SGOT 58.0 U/L (12-37); Bilirubin, Total 0.6 mg/dL (0.1-1.0); Blood Urea Nitrogen 10.0 mg/dL (8-24); CO2, Blood 21.0 mmol/L (21-32); Calcium, Blood 9.0 mg/dL (8.5-10.1); Chloride, Blood 106.0 mmol/L (98-108); Creatinine, Blood 0.87 mg/dL (0.60-1.20); Globulin, Blood 5.9 g/dL (2.2-4.0); Glucose, Blood 130.0 mg/dL (70-99); Potassium, Blood 4.1 mmol/L (3.5-5.5); Sodium, Blood 134.0 mmol/L (136-145); Total Protein, Blood 8.8 g/dL (6.4-8.2)
[2025-02-05] MEDS ORDERED: Albuterol 2.5 MG/3 ML VIAL INH ONE (09:50)
[2025-02-05] MEDS ORDERED: Ipratropium Bromide INH 0.02% 0.5 mg/2.5ML Vial INH SCH (09:50)
[2025-02-05 09:52] LABS: Influenza A, PCR NEGATIVE (NEGATIVE); Influenza B, PCR NEGATIVE (NEGATIVE); Resp Syncytial Virus, PCR NEGATIVE (NEGATIVE); SARS-Cov-2 (COVID-19) PCR, MMC NEGATIVE (NEGATIVE)
[2025-02-05] MEDS ORDERED: Lidocaine 2% Viscous Soln 15 ML UDC PO ONE (12:50)
[2025-02-05 13:31] VITALS: BP 175/75
== END 2025-02-05 13:32 | disposition home or self-care (01) ==
LOC: ER 07:34
PROVIDERS: Physician Assistant; Student in an Organized Health Care Education/Training Program
DX: J44.89 Other specified chronic obstructive pulmonary disease (principal); J45.901 Unspecified asthma with (acute) exacerbation; F43.10 Post-traumatic stress disorder, unspecified; K21.9 Gastro-esophageal reflux disease without esophagitis; Z87.891 Personal history of nicotine dependence; Z79.52 Long term (current) use of systemic steroids; Z79.899 Other long term (current) drug therapy; Z79.51 Long term (current) use of inhaled steroids; Z91.048 Other nonmedicinal substance allergy status; Z88.1 Allergy status to other antibiotic agents; Z88.6 Allergy status to analgesic agent; Z88.8 Allergy status to other drugs, medicaments and biological substances
CPT/HCPCS: 71046; 71260; 80053; 83690; 84484; 85025; 85379; 87637; 93005; 93010; 96374-59; 96376-59; 99284-25; J2270; Q9967